=== PATIENT | female | born 1985 | race Hispanic/Latino ===

== ENCOUNTER 2018-03-30 01:36 | Inpatient (IN) | payer OTHER ==
[2018-03-30] VITALS (8 sets, daily range): BP systolic 108–133; BP diastolic 55–79
[2018-03-30] MEDS ORDERED: PRENATAL TABLE1 EAC3 PO (03:12)
[2018-03-30 03:13] LABS: BASOPHIL (%) 0.1 % (0-1); EOSINOPHIL (%) 0.6 % (0-5); EOSINOPHIL COUNT 0.1 K/uL (0-0.3); HEMATOCRIT 16.2 % (36.0-46.0); HEMOGLOBIN 5.7 G/DL (11.9-15.5); IMMATURE GRANULOCYTE (%) 0.6 % (0.0-0.7); LYMPHOCYTE COUNT 2.2 K/uL (1.0-2.8); MCH 33.9 PG (29.0-34.0); MCHC 35.2 G/DL (30.0-36.0); MCV 96.4 FL (83-99); MONOCYTE (%) 10.2 % (3-12); MONOCYTE COUNT 1.3 K/uL (0-0.8); NEUTROPHIL (%) 70.5 % (45-76); NEUTROPHIL COUNT 8.7 K/uL (1.8-6.4); PLATELET COUNT 351 K/uL (156-360); RBC DIS.WIDTH-CV 12.7 % (11.8-14.6); RBC DIS.WIDTH-SD 43.7 % (39-53); RED BLOOD COUNT 1.68 M/uL (3.80-5.20); WHITE BLOOD COUNT 12.3 K/uL (4.1-10.2)
[2018-03-30] MEDS ORDERED: CHROMAGEN SOFT1 EACH PO (06:15)
[2018-03-30] MEDS ORDERED: MOTRIN800 MG PO (06:15)
[2018-03-30 09:15] LABS: BASOPHIL (%) 0.2 % (0-1); EOSINOPHIL (%) 0 % (0-5); HEMATOCRIT 31.8 % (36.0-46.0); IMMATURE GRANULOCYTE (%) 0.4 % (0.0-0.7); LYMPHOCYTE (%) 7.1 % (15-42); LYMPHOCYTE COUNT 1.1 K/uL (1.0-2.8); MCH 33.4 PG (29.0-34.0); MCHC 34.9 G/DL (30.0-36.0); MCV 95.8 FL (83-99); MONOCYTE (%) 9.3 % (3-12); MONOCYTE COUNT 1.5 K/uL (0-0.8); NEUTROPHIL COUNT 13.3 K/uL (1.8-6.4); PLATELET COUNT 267 K/uL (156-360); RBC DIS.WIDTH-CV 12.6 % (11.8-14.6); RBC DIS.WIDTH-SD 43.4 % (39-53)
[2018-03-30 09:16] LABS: HEMOGLOBIN 11.1 G/DL (11.9-15.5); RED BLOOD COUNT 3.32 M/uL (3.80-5.20)
[2018-03-30 16:40] LABS: HEMATOCRIT 29.1 % (36.0-46.0); HEMOGLOBIN 10.1 G/DL (11.9-15.5); MCH 33.3 PG (29.0-34.0); MCHC 34.7 G/DL (30.0-36.0); PLATELET COUNT 240 K/uL (156-360); RED BLOOD COUNT 3.03 M/uL (3.80-5.20); WHITE BLOOD COUNT 11.2 K/uL (4.1-10.2)
[2018-03-31 06:40] VITALS: BP 124/79
[2018-03-31 15:15] VITALS: BP 108/78
[2018-03-31 22:33] VITALS: BP 108/58
== END 2018-04-01 13:55 | disposition home or self-care (01) | DRG 775 ==
LOC: LDRP-OP 01:36 → 2WEST 01:37 → LDRP-OP 05-06 16:55
PROVIDERS: Advanced Practice Midwife; Nurse Practitioner
DX: O62.3 Precipitate labor (principal); O99.02 Anemia complicating childbirth; D50.9 Iron deficiency anemia, unspecified; Z37.0 Single live birth; Z3A.39 39 weeks gestation of pregnancy
CPT/HCPCS: 85025; 85025 91; 85027; 86850; 86900; 86901